=== PATIENT | male | born 1990 | race Caucasian/White ===

== ENCOUNTER → 2020-06-10 | Outpatient (CLI) | payer OTHER ==
--- NOTE | 2020-06-10 14:15 | RAD ---
2 views lumbar spine 06/10/2020 12:00 AM Indication: Reason: BACK PAIN. / Spl. Instructions: / History: Comparison: None Findings: No evidence of acute fracture or alignment abnormality is identified. Disc spaces are preserved. Mild dextrocurvature at the thoracic lumbar junction is seen. This could be positional, given technique. No evidence of spondylolysis or spondylolisthesis is seen. No acute soft tissue changes are identified. IMPRESSION: 1. No evidence of acute osseous of normality 2. Mild dextrocurvature of the thoracolumbar lumbar spine, if there is clinical concern for scoliosis, dedicated radiographs recommended Electronically signed by: Gee Dennis MD (06/10/2020 2:12 PM) [id number]
== END ==
LOC: RAD 12:32
PROVIDERS: ATTEND Anesthesiology Pain Medicine
DX: M43.8X5 Other specified deforming dorsopathies, thoracolumbar region (principal); M54.5 Low back pain
CPT/HCPCS: 72100